=== PATIENT | female | born 1995 | race Caucasian/White ===

== ENCOUNTER 2021-07-15 14:43 | Emergency (ER) | payer OTHER ==
[~2021-07-15] VITALS: Ht 162.6 cm; Wt 114.0 kg
[2021-07-15] MEDS ORDERED: LABE100T4 PO (15:09)
[2021-07-15] MEDS ORDERED: ZOLO50TA PO (15:09)
--- NOTE | 2021-07-15 18:13 | REP ---
INDICATION: fall/trauma cramping 18 weeks gestation. COMPARISON: None. TECHNIQUE: Real-time sonographic evaluation of gravid uterus performed. FINDINGS: There is a single living intrauterine gestation. The estimated gestational age is reportedly 18 weeks 0 days, EDC 12/16/2021. The heart rate is 142 beats per minute. position is cephalic. Placenta is on the left and grade 0 with no previa or abruption. Amniotic fluid within normal limits, ARMEN 11.0 within normal range 8.7-20.2. Cervix is closed and measures 3.4 cm in length. A cystic Structure in the right ovarymeasures 1.7 cm in diameter. IMPRESSION: Viable intrauterine gestation as above. <Electronically signed by Toni Murray > 07/15/21 [id number]
[2021-07-15 18:26] VITALS: BP 138/87
== END 2021-07-15 18:33 | disposition home or self-care (01) ==
LOC: M ED 14:43
DX: O9A.212 Injury, poisoning and certain other consequences of external causes complicating pregnancy, second trimester (principal); W01.0XXA Fall on same level from slipping, tripping and stumbling without subsequent striking against object, initial encounter; Y92.9 Unspecified place or not applicable; Y93.9 Activity, unspecified; Y99.9 Unspecified external cause status; Z3A.18 18 weeks gestation of pregnancy

== ENCOUNTER 2021-10-12 17:40 | Outpatient (CLI) | payer OTHER ==
[~2021-10-12] VITALS: Ht 162.6 cm; Wt 111.1 kg
[~2021-10-12 17:40] MED LIST: LABE100T4 PO; ZOLO50TA PO
[2021-10-12 17:57] VITALS: BP 126/74
[2021-10-12] MEDS ORDERED: PRENTAB9 PO (18:03)
[2021-10-12] MEDS ORDERED: ASPI81CH33 PO (18:03)
[2021-10-12 18:41] VITALS: BP 127/65
--- NOTE | 2021-10-12 21:23 | IPNPDOC ---
Text Note Date of Service The patient was seen on 10/12/21. NOTE Subjective: Susan is a 26-year-old female who is a at 30.5 weeks gestation with an GALEN of 12/16/21. She receives care in [place]. Her has been complicated by a history of a delivery due to IUGR with abnormal cord dopplers, CHTN (taking 100 mg PO BID), depression, morbid obesity, and a prior section. She presents today with complaints of occasional visual changes. She reported seeing spots. She denies any other preeclamptic symptoms. She has been normotensive. She reports active movement. She denies leaking of fluid, vaginal bleeding, or contractions. OB Hx: 05/21/19-male weighting 2 lbs at 29 weeks gestation, primary section due to GHTN with IUGR and abnormal cord dopplers. Medical Hx: CHTN, morbid obesity, depression Surgical Hx: section Social Hx: . Denies being a smoker, alcohol or drug use. Current medications: Labetalol 100 mg BID, Zoloft 50 mg, and ASA 81 mg Objective: FHR: 130, moderate variability, positive accelerations, no decelerations. Country Walk: no contractions General: Alert and oriented. Does not appear to be in any distress. Respiratory: regular rate without use of accessory muscles. Breathing comfortably on room air. Abdomen: soft and not tender to palpation Assessment: IUP at 30.5 weeks gestation, CHTN, normotensive Plan: Discharged to home. Reviewed signs and symptoms of preeclampsia. Reviewed access to care, kick count, labor signs and danger signs to report. She is to follow-up with her routine OB appointment in [place] this week. VS,Fishbone, I+O VS, Fishbone, I+O Vital Signs Date Time Temp Pulse Resp B/P (MAP) Pulse Ox O2 Delivery O2 Flow Rate FiO2 10/12/21 18:41 81 18 127/65 (85) 10/12/21 17:57 98.5 ISABELLE DANIELS CNM Oct 12, 2021 21:23
== END 2021-10-12 20:37 | disposition home or self-care (01) ==
LOC: M LDO 17:40
PROVIDERS: ATTEND Advanced Practice Midwife
DX: O26.893 Other specified pregnancy related conditions, third trimester (principal); O99.343 Other mental disorders complicating pregnancy, third trimester; F32.A Depression, unspecified; H53.9 Unspecified visual disturbance; O34.219 Maternal care for unspecified type scar from previous cesarean delivery; Z87.59 Personal history of other complications of pregnancy, childbirth and the puerperium; Z3A.30 30 weeks gestation of pregnancy
CPT/HCPCS: 59025; G0378; G0463

== ENCOUNTER 2021-11-09 15:18 | Outpatient (CLI) | payer OTHER ==
[~2021-11-09] VITALS: Ht 162.6 cm; Wt 114.2 kg
[~2021-11-09 15:18] MED LIST changes: +ASPI81CH33 PO; +PRENTAB9 PO
[2021-11-09 15:39] VITALS: BP 138/86
[2021-11-09 15:53] VITALS: BP 135/83
== END 2021-11-09 16:02 | disposition home or self-care (01) ==
LOC: M LDO 15:18
PROVIDERS: ATTEND Advanced Practice Midwife
DX: O16.3 Unspecified maternal hypertension, third trimester (principal); Z3A.34 34 weeks gestation of pregnancy
CPT/HCPCS: 59025; G0378; G0463

== ENCOUNTER 2021-11-21 21:07 | Outpatient (CLI) | payer OTHER ==
[~2021-11-21] VITALS: Ht 162.6 cm; Wt 116.5 kg
[2021-11-21 21:25] VITALS: BP 141/88
== END 2021-11-22 05:59 | disposition home or self-care (01) ==
LOC: M LDO 21:07
PROVIDERS: ATTEND Obstetrics & Gynecology
DX: O26.893 Other specified pregnancy related conditions, third trimester (principal); O36.5930 Maternal care for other known or suspected poor fetal growth, third trimester, not applicable or unspecified; Y92.9 Unspecified place or not applicable; Y93.9 Activity, unspecified; Y99.9 Unspecified external cause status; Z3A.36 36 weeks gestation of pregnancy
CPT/HCPCS: 59025; 85460; G0378; G0463

== ENCOUNTER → 2022-08-05 | Outpatient (CLI) | payer OTHER ==
[~2022-08-05] MED LIST changes: -LABE100T4 PO; +LABE100T6 PO
[2022-08-05 14:42] LABS: FREE T4 1.28 NG/DL (0.76-1.46); THYROID STIMULATING HORMONE 0.922 uIU/ML (0.358-3.740)
[2022-08-05 15:04] LABS: TOTAL 25(OH) VITAMIN D 18.8 NG/ML (30.0-100.0)
== END ==
LOC: M PLALAB 10:33
PROVIDERS: ATTEND Nurse Practitioner Family
DX: R53.83 Other fatigue (principal)

== ENCOUNTER 2022-08-18 10:00 | Outpatient (RCR) | payer OTHER | END 2022-08-27 | LOC: M PT 10:00 | PROVIDERS: ATTEND Family Medicine | DX: N73.6 Female pelvic peritoneal adhesions (postinfective) (principal); O94 Sequelae of complication of pregnancy, childbirth, and the puerperium ==

== ENCOUNTER → 2022-12-30 | Outpatient (CLI) | payer OTHER ==
[2022-12-30 21:18] LABS: HEMOGLOBIN A1c 4.9 % (4.0-6.0)
[2022-12-30 23:06] LABS: THYROID STIMULATING HORMONE 1.027 uIU/ML (0.55-4.78); TOTAL 25(OH) VITAMIN D 20.9 NG/ML (20.0-100.0)
[2022-12-30 23:50] LABS: CHOLESTEROL RISK RATIO 2.22 (<5); HDL CHOLESTEROL 64.4 MG/DL (>40); LDL CHOLESTEROL 58.4 MG/DL (<100)
[2022-12-31 00:46] LABS: FREE T4 1.3 NG/DL (0.89-1.76)
[2023-01-01 15:07] LABS: TESTOSTERONE FREE (DIRECT) 3.7 pg/mL (0.0-4.2)
== END ==
LOC: M PLALAB 14:52
PROVIDERS: ATTEND Nurse Practitioner Family
DX: E55.9 Vitamin D deficiency, unspecified (principal); E66.9 Obesity, unspecified; L68.0 Hirsutism